=== PATIENT | female | born 1995 | race African-American/Black ===

== ENCOUNTER 2018-06-20 23:25 | Emergency (ER) | payer MEDICAID ==
[~2018-06-20] VITALS: Ht 157.5 cm; Wt 63.6 kg
[2018-06-21] MEDS ORDERED: ACETAMINOPHEN 325MG TABLET PO ONE (00:30)
[2018-06-21] MEDS ORDERED: CYCLOBENZAPRINE 10MG TABLET PO ONE (00:30)
[2018-06-21 01:11] VITALS: BP 130/85
[2018-06-21 01:22] LABS: BASOPHILS % 0.3 % (0.0-2.0); EOSINOPHILS % 2.1 % (0.0-5.0); HEMATOCRIT. 38.4 % (36.0-48.0); HEMOGLOBIN. 12.7 g/dL (12.0-16.0); LYMPHOCYTES % 42.3 % (20.0-50.0); MEAN CORPUSCULAR VOLUME 96.7 fL (81.0-99.0); MEAN PLATELET VOLUME 9.2 fl (7.4-10.4); MONOCYTES % 9.9 % (2.0-8.0); NEUTROPHILS % 45.4 % (40.0-76.0); PLATELET 255 x1000/uL (130-400); RED BLOOD CELL COUNT 3.97 mill/uL (4.2-5.4); RED CELL DISTRIBUTION WIDTH 12.5 % (11.6-14.6)
[2018-06-21 01:32] LABS: CHLORIDE 106 mEq/L (98-107)
[2018-06-21 01:42] LABS: INR 1.1; PARTIAL THROMBOPLASTIN TIME 29.6 sec (23.4-31.0); PROTHROMBIN TIME 10.8 sec (9.1-11.1)
[2018-06-21 02:29] LABS: CLARITY URINE TURBID (CLEAR); COLOR URINE YELLOW (YELLOW); KETONES URINE NEGATIVE (NEGATIVE); LEUKOCYTE ESTERASE URINE 1+ (NEGATIVE); NITRITE URINE NEGATIVE (NEGATIVE); OCCULT BLOOD URINE 1+ (NEGATIVE); PH URINE 6.5 (4.5-8.0); PROTEIN URINE NEGATIVE (NEGATIVE); SPECIFIC GRAVITY URINE 1.037 (1.005-1.030)
== END 2018-06-21 01:18 | disposition left against medical advice (07) ==
LOC: ER 23:25
DX: M54.9 Dorsalgia, unspecified (principal); V43.52XA Car driver injured in collision with other type car in traffic accident, initial encounter; Y93.89 Activity, other specified; Y92.410 Unspecified street and highway as the place of occurrence of the external cause
CPT/HCPCS: 36415; 81025; 99283